=== PATIENT | female | born 1970 | race Caucasian/White ===

== ENCOUNTER 2019-09-11 04:49 | Emergency (ER) | payer BC, SELFPAY ==
[2019-09-11 04:56] VITALS: BP 146/99; PULSE 82; RESP 16; TEMP 36.6; O2SAT 97; BMI 49.8
[2019-09-11 05:17] VITALS: BP 137/87; PULSE 79; PULSE 87; RESP 16; O2SAT 96
--- NOTE | 2019-09-11 05:19 | ED_ITS ---
HPI - Extremity Problem General: Chief complaint: Extremity Problem,Nontraumatic Stated complaint: LEFT KNEE PAIN Time Seen by Provider: 09/11/19 05:02 History of Present Illness: HPI Narrative: 48-year-old female with a history of knee pain, for the past couple of days. She noticed that after crawling across the bed. No discrete significant injury. She is swollen. She is having trouble bearing weight. She is having trouble both extending and flexing. No fever, no heat, no rash. Onset (ago): day(s) Pain Consistency: constant Location: left and knee Quality: dull Radiation: none Relieving factors: nothing Exacerbating factors: weight bearing Associated symptoms: Deny chest pain, fever(s), myalgias or rash Context: recent travel Review of Systems Const: Denies: fever Eyes: Denies: change in vision or blurry vision ENMT: Denies: painful swallowing, swelling of lips/tongue, bleeding gums, dental pain, Change in hearing, nose bleeds, post nasal drip or facial/sinus pain Card: Denies: chest pain, palpitations, irregular heart rhythm, edema, swelling of feet/ankles, shortness of breath on exertion or shortness of breath when lying down Resp: Denies: shortness of breath, productive cough, non-productive cough or wheezing GI: Denies: abdominal pain, nausea, vomiting, rectal pain, blood in stool or black tarry stool : Denies: painful urination, urinary frequency, urinary urgency or blood in urine Musc: Denies: neck pain, back pain, redness or joint warmth Skin/Breast: Denies: rash, itching or redness Neuro: Denies: headache, dizziness, vertigo, confusion or seizure-like activity Psych: Denies: anxiety, visual hallucinations or auditory hallucinations PFSH ED PFSH: Statuses (acute, chronic, etc) shown below reflect problem list status as previously entered and may not be historically accurate Social History Smoking and tobacco status: former smoker Physical Exam Const: COMMON NORMALS: alert GENERAL APPEARANCE: well developed ORIENTATION/CONSCIOUSNESS: Yes awake, Yes oriented to person, Yes oriented to place and Yes oriented to time Chest: COMMONS NORMALS: inspection of chest normal CHEST: Yes symmetrical chest wall rise and No tenderness Resp: COMMON NORMALS: clear to auscultation bilaterally EFFORT & INSPECTION: No tachypneic, No respiratory distress, No retractions, No uses accessory muscles and No tracheal deviation AUSCULTATION: clear to auscultation bilaterally, no rhonchi, no wheezes and lung sounds not diminished Cardio: COMMON NORMALS: regular rate and regular rhythm RATE: regular rate RHYTHM: regular rhythm HEART SOUNDS: no murmurs PERIPHERAL PULSES: ra dial pulses present Extremity: NARRATIVE EXTREMITY EXAM: Left knee 10 degrees of extension lag. Pain with flexion. Mild effusion present. Tender along the anterior and medial joint line. Laxity hard to assess due to pain. Neuro: SENSORIUM/ORIENTATION: Yes alert, Yes oriented to person, Yes oriented to place and Yes oriented to time Psych: COMMON NORMALS: mental status grossly normal and speech normal SPEECH: Yes normal speech Skin: COMMON NORMALS: no rashes or lesions noted GENERAL SKIN EXAM: no rashes or lesions noted Course ED course: X-ray reveals no fracture. Effusion present. Appearance of a likely loose body. Vital Signs: Vital signs: Vital Signs Temperature 97.8 F 09/11/19 04:56 Pulse Rate 87 09/11/19 05:17 Respiratory Rate 16 09/11/19 05:17 Blood Pressure 137/87 09/11/19 05:17 Pulse Oximetry 96 09/11/19 05:17 Discharge Plan Discharge Patient Disposition: Home, Self-Care Clinical Impression: Effusion of knee joint, left Condition: Stable Prescriptions: New ketorolac 10 mg tablet 10 mg PO TID PRN (Reason: pain) Qty: 10 RF: 0 No Action levothyroxine 175 mcg Tablet 175 mcg PO DAILY RF: 0 lisinopril 20 mg Tablet 20 mg PO DAILY RF: 0 sertraline 100 mg Tablet 100 mg PO DAILY RF: 0 Klonopin 1 mg Tablet 1 mg PO DAILY PRN (Reason: Anxiety) RF: 0 simvastatin 40 mg Tablet 40 mg PO QPM RF: 0 metformin 1,000 mg Tablet 1,000 mg PO BID RF: 0 Vitamin D3 5,000 unit Tablet 50,000 unit PO DAILY RF: 0 Discharge Orders: Discharge Order (Routine); Ordered 09/11/19 Ordered By: Doni Morgan Referrals: Dorina Lopez [Family Provider] - 1-3 days Discharge Diet: Usual diet Discharge Activity: Increase activity as tolerated Activity Restrictions/Additional Instructions: Do not use the knee immobilizer more than 5 days. Ice frequently. Follow-up with your doctor. Further testing, such as an MRI may be needed, as your knee joint is significantly swollen. Coding Level of Care Code ED Field Sales Agent for Venkat Hunt
--- NOTE | 2019-09-11 05:22 | XR_ITS ---
WS: [id number] LEFT KNEE: 3 VIEW(S) TECHNIQUE: AP, oblique(s) and lateral. HISTORY: pain, swelling COMPARISON: None available. No fracture or dislocation. Mild narrowing of the joint spaces and marginal osteophytes. Small osteochondral lesions along the we ightbearing surface of the lateral femoral condyle. Very small suprapatellar effusion. No soft tissue abnormality. XR/XR knee LT 3V* [id number] IMPRESSION: 1. Mild tricompartment osteoarthritis. 2. Small osteochondral lesions weightbearing surface lateral femoral condyle.
[2019-09-11 06:26] VITALS: RESP 16; O2SAT 97
[2019-09-11] MEDS: ketorolac 10 mg Tablet PO (06:26)
[2019-09-11] MEDS: oxyCODONE-APAP 5-325 mg Tablet 1 TAB PO (06:26)
[2019-09-11 06:43] VITALS: BP 144/93; PULSE 76; RESP 16; O2SAT 96
== END 2019-09-11 06:51 | disposition home or self-care (01) ==
PROVIDERS: Emergency Provider Emergency Medicine; Family Provider Nurse Practitioner Family
DX: M25.462 Effusion, left knee (principal); Z79.84 Long term (current) use of oral hypoglycemic drugs; Z87.891 Personal history of nicotine dependence
CPT/HCPCS: 73562; 99281; L1830

== ENCOUNTER → 2020-04-03 14:36 | Outpatient (BNVA) | payer BC, SELFPAY | PROVIDERS: Family Provider Nurse Practitioner Family; Visit Provider Nurse Practitioner Family | DX: R50.9 Fever, unspecified (principal); R53.83 Other fatigue; J02.9 Acute pharyngitis, unspecified; Z20.828 Contact with and (suspected) exposure to other viral communicable diseases | CPT/HCPCS: 87635 ==

== ENCOUNTER 2021-08-05 15:48 | Outpatient (CLI) | payer BC, SELFPAY | END 2021-08-05 15:49 | disposition home or self-care (01) | LOC: SPT 15:48 | PROVIDERS: Family Provider Nurse Practitioner Family; Visit Provider Orthopaedic Surgery | DX: Z46.89 Encounter for fitting and adjustment of other specified devices (principal); M67.431 Ganglion, right wrist | CPT/HCPCS: L3908 ==

== ENCOUNTER 2021-09-17 08:23 | Outpatient (CLI) | payer BC, SELFPAY ==
[2021-09-17 08:30] VITALS: BP 159/92; PULSE 91; RESP 18; TEMP 36.6; O2SAT 96; BMI 47.8
[2021-09-17 09:15] VITALS: BP 133/86; PULSE 78; RESP 16; TEMP 36.7; O2SAT 95
[2021-09-17 10:16] VITALS: BP 146/97; PULSE 77; RESP 17; TEMP 36.7; O2SAT 97
== END 2021-09-17 08:24 | disposition home or self-care (01) ==
LOC: OPS 08:26
PROVIDERS: PCP Nurse Practitioner Family; Visit Provider Nurse Practitioner Family
DX: U07.1 COVID-19 (principal)
CPT/HCPCS: 96365